=== PATIENT | female | born 1950 | race Caucasian/White ===

== ENCOUNTER → 2016-05-08 | Outpatient (CLI) | payer BC ==
--- NOTE | 2016-05-08 15:41 | MAMMOGRAPHY REPORT ---
BILATERAL DIGITAL SCREENING MAMMOGRAM TOMOSYNTHESIS WITH CAD: 05/08/2016 CLINICAL HISTORY: Routine screening. Patient has no complaints. TECHNIQUE: Breast tomosynthesis in addition to standard 2D mammography was performed. Current study was also evaluated with a Computer Aided Detection (CAD) system. COMPARISON: Comparison is made to exams dated: 04/06/2015 mammogram, 03/27/2010 mammogram - [facility], 05/16/2008, 07/22/2012 mammogram, and 01/13/2011 mammogram - [facility]. BREAST COMPOSITION: The tissue of both breasts is heterogeneously dense, which may obscure small ma sses. FINDINGS: No suspicious masses, calcifications, or areas of architectural distortion are noted in e ither breast. There has been no significant interval change compared to prior exams. IMPRESSION: ACR BI-RADS CATEGORY 1: NEGATIVE There is no mammographic evidence of malignancy. A 1 year screening mammogram is recommended. The p atient will receive written notification of the results. Approximately 10% of breast cancers are not detected with mammography. A negative mammographic repor t should not delay biopsy if a clinically suggestive mass is present. Shannen Acevedo M.D. ah/:05/08/2016 13:41:55 Profiler: Karie MORAES(R)(M), [facility] letter sent: Normal 1/2 BI-RADS Code: ACR BI-RADS Category 1: Negative
== END | disposition home or self-care (01) ==
LOC: C.MAMM 12:15
PROVIDERS: ATTEND Obstetrics & Gynecology Gynecologic Oncology
DX: Z12.31 Encounter for screening mammogram for malignant neoplasm of breast (principal)

== ENCOUNTER → 2017-06-01 | Outpatient (CLI) | payer BC ==
--- NOTE | 2017-06-02 07:40 | MAMMOGRAPHY REPORT ---
BILATERAL DIGITAL SCREENING MAMMOGRAM TOMOSYNTHESIS WITH CAD: 06/01/2017 CLINICAL HISTORY: Routine screening. TECHNIQUE: Breast tomosynthesis in addition to standard 2D mammography was performed. Current study was also evaluated with a Computer Aided Detection (CAD) system. COMPARISON: Comparison is made to exams dated: 05/08/2016 mammogram, 04/06/2015 mammogram, 07/22/2012 m ammogram, 01/13/2011 mammogram, 03/27/2010 mammogram - [facility], and 05/16/2008. BREAST COMPOSITION: The tissue of both breasts is heterogeneously dense, which may obscure small mas ses. FINDINGS: The parenchymal pattern is similar to prior mammograms, with stable focal asymmetry in the 12:00 right breast. No suspicious mass, architectural distortion or cluster of microcalcifications i s seen. IMPRESSION: ACR BI-RADS CATEGORY 2: BENIGN There is no mammographic evidence of malignancy. A 1 year screening mammogram is recommended. The pa tient will receive written notification of the results. Approximately 10% of breast cancers are not detected with mammography. A negative mammographic report should not delay biopsy if a clinically suggestive mass is present. Analisa Morillo M.D. ay/:06/01/2017 16:21:20 Industrial Engineering Analyst: Castro MORAES(R)(M), [facility] letter sent: Normal 1/2 BI-RADS Code: ACR BI-RADS Category 2: Benign
== END | disposition home or self-care (01) ==
LOC: C.MAMM 14:52
PROVIDERS: ATTEND Family Medicine
DX: Z12.31 Encounter for screening mammogram for malignant neoplasm of breast (principal)

== ENCOUNTER → 2017-06-19 | Day surgery (SDC) | payer BC ==
[2017-06-16 13:48] VITALS: BMI 28.0
[~2017-06-19] VITALS: Ht 165.1 cm; Wt 77.3 kg
[~2017-06-19] MED LIST: ACYC-56 PO; ATV/1 PO; BUTACAP36 PO; COLE1TAB PO; HYDR25TA4 PO; LIDOCAINE HCL 2% 2 ML VIAL (20MG/ML) ONE; LPT/40 PO; NRN100 PO; PROPOFOL IV EMULSION 10 MG/ML 20 ML VIAL ONE; SODIUM CHLORIDE 0.9% 500ML 500 ML IV ONE; VILA1TAB PO; ZOLP6.2529 PO
[2017-06-19 09:39] VITALS: Ht 165.1 cm; Wt 77.3 kg
--- NOTE | 2017-06-19 09:47 | Endo History and Physical ---
History & Physical Date of Service: June 19, 2017. Chief Complaint: chronic diarrhea Referring Physician: Dr. Guardado History of Present Illness chronic diarrhea Past Surgical History Hx Cardiac Surgery: No Hx Internal Defibrillator: No Hx Pacemaker: No Hx Abdominal Surgery: Yes (TUBAL) Hx of Implantable Prosthesis: No Hx Post-Op Nausea and Vomiting: No Hx Cancer Surgery: Yes (HYSTER) Hx Thoracic Surgery: No Hx Orthopedic: No Hx Urinary Tract Surgery: No Family History None Social History Smoking Status: Former Smoker Hx Substance Use: No Hx Alcohol Use: Yes (COUPLE DRINKS A NIGHT) Allergies Coded Allergies: No Known Allergies (Verified , 06/19/17) Current Medications Reported Home Medications Medications Dose Route/Sig Max Daily Dose Days Date Category Zolpidem Tartrate Er (Zolpidem Tartrate) 6.25 Mg Tab 1 Tab PO HS PRN 06/16/17 Reported Viibryd (Vilazodone Hcl) 10 Mg Tab 2 Tab PO DAILY 30 06/16/17 Reported Ativan (Lorazepam) 1 Mg Tab 1 Mg PO Q8 PRN 06/16/17 Reported Hctz (Hydrochlorothiazide) 25 Mg Tab 1 Tab PO DAILY 30 06/16/17 Reported Gabapentin 100 Mg Cap 3 Cap PO HS 06/16/17 Reported Colestid (Colestipol Hcl) 1 Gm Tab 2 Gm PO QAM 06/16/17 Reported Lipitor (Atorvastatin) 40 Mg Tab 40 Mg PO DAILY 06/16/17 Reported Fiorinal (Frcadcelmz-Dlhwpvv-Dcbtehmb) 1 Cap Cap 2 Cap PO Q6 PRN 06/16/17 Reported Acyclovir 200 Mg Cap 1 Cap PO DIRECTED 06/16/17 Reported Vital Signs Weight (Kilograms): 77.27 Height (Feet): 5 Height (Inches): 5 Date Time Temp Pulse Resp B/P (MAP) Pulse Ox O2 Delivery O2 Flow Rate FiO2 06/19/17 09:41 36.5 85 18 150/85 (106) 96 Room Air Physical Exam General Appearance: WD/WN, no apparent distress Assessment and Plan colonoscopy today
--- NOTE | 2017-06-19 10:35 | GI REPORT ---
Patient Name: Elizabeth Nieves Procedure Date: 06/19/2017 9:55 AM Date of : 1950 Admit Type: Outpatient Age: 67 Gender: Female Attending MD: Nataly Nesbitt DO Procedure: Colonoscopy Providers: Nataly Nesbitt DO Referring MD: Sharlene Guardado Indications: High risk colon cancer surveillance: Personal history of colonic polyps, Incidental - Chronic diarrhea Medicines: Propofol per Anesthesia Complications: No immediate complications. Estimated blood loss: Minimal. Estimated Blood Loss: Estimated blood loss was minimal. Procedure: Pre-Anesthesia Assessment: - Prior to the procedure, a History and Physical was performed, and patient medications, allergies and sensitivities were reviewed. The patient's tolerance of previous anesthesia was reviewed. - The risks and benefits of the procedure and the sedation options and risks were discussed with the patient. All questions were answered and informed consent was obtained. - Patient identification and proposed procedure were verified prior to the procedure by the physician and the nurse. The procedure was verified in the pre-procedure area in the procedure room. - Mental Status Examination: alert and oriented. Airway Examination: normal oropharyngeal airway and neck mobility. Respiratory Examination: clear to auscultation. CV Examination: normal. Abdominal Examination: bowel sounds present, abdomen soft and non-tender, no masses or organomegaly noted. - ASA Grade Assessment: III - A patient with severe systemic disease. After I obtained informed consent, the scope was passed under direct vision. Throughout the procedure, the patient's blood pressure, pulse, and oxygen saturations were monitored continuously. The Scope was introduced through the anus and advanced to the terminal ileum. The colonoscopy was performed without difficulty. The patient tolerated the procedure well. The quality of the bowel preparation was good. Findings: The perianal and digital rectal examinations were normal. Pertinent negatives include normal sphincter tone and no palpable rectal lesions. The terminal ileum appeared normal. Biopsies were taken with a cold forceps for histology. Verification of patient identification for the specimen was done by the physician and nurse using the patient's name and date. Estimated blood loss was minimal. The colon (entire examined portion) appeared normal. Biopsies for histology were taken with a cold forceps from the right colon and left colon for evaluation of microscopic colitis. Verification of patient identification for the specimen was done by the physician and nurse using the patient's name and date. Estimated blood loss was minimal. Two sessile polyps were found in the sigmoid colon. The polyps were 4 to 7 mm in size. These polyps were removed with a cold snare. Resection and retrieval were complete. Verification of patient identification for the specimen was done by the physician and nurse using the patient's name and date. Estimated blood loss was minimal. The retroflexed view of the distal rectum and anal verge was normal and showed no anal or rectal abnormalities. Impression: - The examined portion of the ileum was normal. Biopsied. - The entire examined colon is normal. Biopsied. - Two 4 to 7 mm polyps in the sigmoid colon, removed with a cold snare. Resected and retrieved. - The distal rectum and anal verge are normal on retroflexion view. Recommendation: - Await pathology results. - Repeat colonoscopy for surveillance based on pathology results. - Return to primary care physician as previously scheduled. - Discharge patient to home. Lashon Velasquez DO 06/19/2017 10:34:47 AM This report has been signed electronically. Note Initiated On: 06/19/2017 9:55 AM Number of Addenda: 0 I attest to the content of the Intraoperative Record and orders documented therein, exceptions below {[id number]}
--- NOTE | 2017-06-19 10:36 | Discharge Instructions ---
Endoscopy Patient Instructions Date / Procedure(s) Performed June 19, 2017. Colonoscopy Allergy Information Coded Allergies: No Known Allergies (Verified , 06/19/17) Discharge Date / Findings June 19, 2017. 2 polyps; normal colon and small bowel mucosa Medication Instructions Restart Stopped Medication(s): OK to resume home medications Provider Instructions Activity Restrictions - No exercising or heavy lifting for 24 hours. - Do not drink alcohol the day of the procedure. - Do not drive a car or operate machinery until the day after the procedure. - Do not make any important decisions or sign important papers in 24 hours after the procedure. Following Day: - Return to full activity which may include returning to work/school. Diet Start your diet with liquids and light foods (jello, soup, juice, toast). Then eat your usual diet if not nauseated. Treatment For Common After Affects For mild abdominal pain, bloating, or excessive gas: - Rest - Eat lightly - Lie on right side Follow-Up Information Follow-up with DR MCCONNELL as scheduled Anesthesia Information What You Should Know You have had a procedure that required some medicine to reduce anxiety and discomfort. This treatment is called moderate sedation. After receiving the treatment, you may be sleepy, but you will be able to breathe on your own. The effects of the treatment may last for several hours. Follow these instructions along with Activity/Diet recommendations noted above: * Do NOT do anything where dizziness or clumsiness would be dangerous. * Rest quietly at home today, then you can be up and about tomorrow. * Have a responsible person stay with you the rest of today. * You may have had an I.V. today. If so, you may take the dressing off later today. Recommendations Call your doctor if: * Trouble breathing * Continuous vomiting for more than 24 hours * Temperature above 101 degrees * Severe abdominal pain or bloating * Pain not relieved by pain medicine ordered * There is increased drainage or redness from any incision * A large amount of rectal bleeding greater than 2-3 tablespoons. (If you had a polyp/s removed or have hemorrhoids, a small amount of blood - from the rectum is to be expected.) * You have any unanswered questions or concerns. IN THE EVENT OF A SERIOUS EMERGENCY, GO TO THE NEAREST EMERGENCY ROOM Your discharge instructions were prepared by provider Nataly Nesbitt. Patient Instructions Signature Page Elizabeth Selego Patient (or Guardian) Signature/Date: I have read and understand the instructions given to me by my caregivers. Caregiver/RN/Doctor Signature/Date: The above-named patient and/or guardian has received patient instructions on this date. + Original Patient Signature Page (only) stays with chart. Please make copy for patient.
--- NOTE | 2017-06-19 10:51 | Anesthesiology Progress Note ---
Anesthesia Post Op Note Date & Time June 19, 2017 at 10:51 Vital Signs Pain Intensity: 0 Vital Signs Past 12 Hours Date Time Temp Pulse Resp B/P (MAP) Pulse Ox O2 Delivery O2 Flow Rate FiO2 06/19/17 10:37 82 12 98/63 (75) 94 Room Air 06/19/17 09:41 36.5 85 18 150/85 (106) 96 Room Air Notes Mental Status: alert / awake / arousable, participated in evaluation Pt Amnestic to Procedure: Yes Nausea / Vomiting: adequately controlled Pain: adequately controlled Airway Patency, RR, SpO2: stable & adequate BP & HR: stable & adequate Hydration State: stable & adequate Anesthetic Complications: no major complications apparent
[2017-06-19 11:07] VITALS: BP 144/90; PULSE 74; O2SAT 100
== END | disposition home or self-care (01) ==
LOC: C.GI 09:11
PROVIDERS: ATTEND Internal Medicine
DX: K52.9 Noninfective gastroenteritis and colitis, unspecified (principal); D12.5 Benign neoplasm of sigmoid colon; Z87.891 Personal history of nicotine dependence; Z79.899 Other long term (current) drug therapy; K21.9 Gastro-esophageal reflux disease without esophagitis; K76.0 Fatty (change of) liver, not elsewhere classified; F41.9 Anxiety disorder, unspecified; F32.9 Major depressive disorder, single episode, unspecified